=== PATIENT | male | born 1975 | race American Indian/Alaskan Native ===

== ENCOUNTER 2018-08-27 00:10 | Emergency (ER) | payer OTHER, MEDICAID ==
[2018-08-27 00:22] VITALS: BP 149/97; PULSE 94; RESP 18; TEMP 98.1; O2SAT 94
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
== END 2018-08-27 03:12 | disposition left against medical advice (07) ==
LOC: ED 00:10 → MERGE 00:10 → ED 03:12
DX: S60.512A Abrasion of left hand, initial encounter (principal); V29.9XXA Motorcycle rider (driver) (passenger) injured in unspecified traffic accident, initial encounter